=== PATIENT | male | born 1955 | race Caucasian/White ===

== ENCOUNTER → 2016-07-08 | Outpatient (CLI) | payer OTHER ==
[~2016-07-08] VITALS: Ht 190.5 cm; Wt 131.1 kg
[~2016-07-08] MED LIST: ALEVE220 M1 PO; ALEVE220 MG PO; AMARYL2 MG PO; ASPIRIN EC81 M1 PO; CARBAMAZEPINE200 M2 PO; CELEXA 20 MG TA20 M1 PO; CIALIS5 MG PO; COZAAR 50 MG TA50 M1 PO; JANUMET XR 50-1 EAC1 PO; LANSOPRAZOLE30 MG PO; NEURONTIN 300300 M1 PO; NORCO 10-325 T1 EACH PO; OXYCONTIN CR 1010 M1 PO; RECTICARE30 GM TP; SIMVASTATIN40 MG PO; SKELAXIN 800 M800 M1 PO; ZOLPIDEM TART12.5 M1 PO
--- NOTE | ~2016-07-08 | HPC ---
[facility] [address] [place] [address] PAIN MANAGEMENT CONSULTATION Name: CHARISSE KENDALL [id number] Admission: 07/08/16 Attend Phys: Bebeto Arcos DO Discharge: Date of : 51 Report #: [id number] THIS REPORT FOR: //name// CC: Gurpreet Arcos The patient is a 61-year-old gentleman seen in consultation at the request of Dr. Fields for evaluation of left neck and jaw pain. The patient notes pain began acutely 2 weeks ago. Denies antecedent trauma or overuse. Rates the pain an 8-9 on a 0-10 visual analog scale. Pain is in the left neck, jaw, posterior occiput. Does not radiate into the arm. Has not changed with masticating, but is painful with light touch. Was given Gabapentin, currently taking one 300 mg tablet at bedtime as we know it does cause a little sedation. Hydrocodone afforded nominal efficacy. Has a prescription from metaxalone, but it is unclear if he is taking it. He has been using topical Neosporin "plus" (I believe this is with lidocaine), which does afford some transient relief. Pain got so bad that 2 days ago on July 06, he presented to the ER at [facility]. They started him on Bactrim for a presumed infection. He does have cervical adenopathy in the postauricular area. He notes he has constant burning, shooting, stabbing pain, again rates it anywhere from 8-9 on a 0-10 visual analog scale. Unfortunately, he is a fairly poor historian. REVIEW OF SYSTEMS: Complete review of systems attached to chart and gone over with the patient. He is . He smokes 1 pack of cigarettes a day, which he has for 38 years. He does not drink alcohol to excess. Non-insulin dependent diabetes, longstanding, currently treated with Januvia; hypertension for which he takes losartan; history of hepatitis as a child; gastroesophageal reflux, for which he takes Lansoprazole; chronic anxiety for which he takes citalopram; history of shingles "on the top of his head" though he is unable to tell me when; history of dyslipidemia for which he takes simvastatin. He has had 4 back surgeries and he has been disabled secondary to same. Pain impact score is fairly high, averaging about 8.2 for all indices queried. PHYSICAL EXAMINATION: VITAL SIGNS: Reveals a 6 feet 2 inches, 289 pounds gentleman. BMI is 36.1 kilograms per meter squared. Blood pressure is 142/75, pulse 71, respirations are 16. NEUROLOGIC: Cranial nerves 2-12 are grossly intact. HEENT: Pupils are equal and react to light and accommodation. Extraocular muscles are intact. He has some erythematous eczema-type distribution over his forehead and nose. Does have perhaps postauricular adenopathy appreciated little bit along the nuchal ridge along the left side. [address] [address] PAIN MANAGEMENT CONSULTATION Name: CHARISSE KENDALL Room #: LARISSA Castro#: [id number] Admission: 07/08/16 Attend Phys: Bebeto Arcos DO Discharge: Date of : 51 Report #: [id number] NEUROLOGIC: Cervical range of motion is modestly diminished, flexion exacerbates pain. Very tender to palpation over the posterior occiput on the left side, temporal area and very tender around the ear and preauricular area. EXTREMITIES: Upper extremity strength is preserved and symmetric at 4/5 to all muscle groups tested. HEART: Regular and rhythmical without murmur. LUNGS: Show rhonchi. ABDOMEN: He is endomorphic build. NEUROLOGIC: Gait is tandem. SKIN INTEGUMENT: As described above. DIAGNOSTIC STUDIES: There are no diagnostic studies available for evaluation at this time. ASSESSMENT: Neuropathic pain, left hemifacial posterior occipital distribution in a gentleman with significant light touch pain and positive adenopathy in this area. No discernible acute skin lesions. Comorbidities include morbid obesity with a BMI of 36.1 kilograms per meter squared, non-insulin dependent diabetes, hypertension, history of shingles though the patient thinks the distribution was not corresponding to current issue of pain. LABORATORY DATA: I did get a CBC with differential, white count is normal at 7.7, he does have modestly elevated monocytes at 9.2. Hemoglobin and hematocrit are nominally high at 18.2 and 52.6 respectively. ASSESSMENT: Neuropathic pain, possible secondary to infection. Again, white count fairly unremarkable, but with significantly tender enlarged lymph nodes in the cervical spine. RECOMMENDATIONS: 1. CT of the cervical spine to evaluate cervical facets. 2. Increase Gabapentin to 2 tablets at bedtime. 3. Prescription for 5% lidocaine gel to be used topically, discontinue the Neosporin. 4. We will start patient on Tegretol 200 mg b.i.d. to help with neuropathic component of pain. Follow up after CT of cervical spine for further evaluation. 5. Neuropathic pain component for which we may consider stellate ganglion block. Given adenopathy issues and concern for infection, we will likely do the injection without steroid. Thank you for allowing me to participate in the patient's care. He is a [facility] [address] [place] [address] PAIN MANAGEMENT CONSULTATION Name: CHARISSE KENDALL Room #: REG [facility] Matthew#: [id number] Admission: 07/08/16 Attend Phys: Bebeto Arcos DO Discharge: Date of : 51 Report #: [id number] diagnostic dilemma. I will keep you abreast of his progress, may consider referral to neurology and/or infectious disease after our next visit. <ELECTRONICALLY SIGNED> By: Bebeto Arcos DO 07/13/16 0729 1232 1820 Bebeto Arcos DO /nt
[2016-07-08 09:56] VITALS: BP 142/75
[2016-07-08 11:07] LABS: ABSOLUTE NEUTROPHILS 4.5 thou/uL (1.4-8.2); BASOPHILS 0.6 % (0.0-2.0); EOSINOPHILS 2.3 % (0.0-3.0); HEMATOCRIT 52.6 % (42.0-52.0); HEMOGLOBIN 18.2 gm/dL (14.0-18.0); LYMPHOCYTES 29.2 % (24.0-44.0); MCH 33.1 pg (26.0-34.0); MCHC 34.5 % (28.0-37.0); MCV 95.7 fL (80.0-100.0); MONOCYTES 9.2 % (1.0-8.0); PLATELET COUNT 144 thou/uL (150-400); POLYS 58.7 % (36.0-66.0); RBC 5.49 mil/uL (4.50-6.00); RDW 14.2 % (10.5-14.5); WBC 7.7 thou/uL (4.0-11.0)
[2016-07-08 11:10] LABS: MANUAL DIFF NO
== END | disposition home or self-care (01) ==
LOC: PAIN 07:16
PROVIDERS: Anesthesiology Pain Medicine
DX: G62.9 Polyneuropathy, unspecified (principal); M54.2 Cervicalgia

== ENCOUNTER → 2016-07-14 | Outpatient (CLI) | payer OTHER ==
[~2016-07-14] VITALS: Ht 190.5 cm; Wt 131.1 kg
--- NOTE | ~2016-07-14 | HPC ---
[facility] [place] [address] PAIN MANAGEMENT CONSULTATION Name: CHARISSE KENDALL Room #: REG [facility] Baltazar.#: [id number] Admission: 07/14/16 Attend Phys: Bebeto Arcos DO Discharge: Date of : 51 Report #: [id number] THIS REPORT FOR: //name// CC: Gurpreet Arcos The patient is a 61-year-old gentleman, prior seen in consultation 07/08/2016, diagnosed with neuropathic pain, left hemifacial, component of cervical spondylosis. I did get a CBC at that time, concern for what appeared to be either boils or lymph nodes in the posterior occipital ridge. White count was essentially unremarkable at 7.7. Eosinophil count was also unremarkable at 2.3, did have a mild elevation in the percentage of lymphocyte at 9.2. I ordered a CT scan of the cervical spine, this was reviewed today. CT scan shows no acute fracture, dislocation or subluxation. There is some mild degenerative disk disease, left C6-C7 neural foraminal stenosis, some canal narrowing at this level as well; however, this does not correlate with any specific radicular symptoms. I personally reviewed the images and saw no obvious pathology in the cranial area along the inferior occipital area. The patient has increased his gabapentin to 2 tablets at bedtime and is taking tegretol 200 mg b.i.d. He notes a little bit of sleepiness with this medication, but no significant change in the subjective pain, the left neck pain rating at 6 or 7 on a 0-10 visual analog scale. Today, we elected to proceed with stellate ganglion block (left) with fluoroscopy today. Followup Monday for repeat if indicated. If stellate ganglion blocks do not afford adequate relief, we will refer to neurology for further diagnosis. ASSESSMENT: Neuropathic pain, left hemifacial, component of cervical spondylosis requiring complex medication management. RECOMMENDATION PROCEDURE: Stellate ganglion block under fluoroscopy. PROCEDURE: After informed consent was obtained, the patient was placed in the supine position. Skin overlying the C6 cervical vertebra was cleansed with ChloraPrep. Skin wheal with Xylocaine was raised. A 22-gauge stellate ganglion needle was placed to contact anterior portion of the C6 vertebral body. Negative aspiration was accomplished, 1 mL of Omnipaque was injected, which showed spread within the sympathetic gutter. This was followed with 2.5 mL of 0.5% preservative-free bupivacaine plus 2.5 mL of 1.5% preservative-free Xylocaine with 1:10,000 epinephrine. Musella removed. The area was cleansed, Band-Aids applied. The patient monitored for an appropriate period of time, discharged in good and stable condition, noting significant improvement in subjective pain. [address] [address] PAIN MANAGEMENT CONSULTATION Name: CHARISSE KENDALL Room #: REG [facility] Castro#: [id number] Admission: 07/14/16 Attend Phys: Bebeto Arcos DO Discharge: Date of : 51 Report #: [id number] Followup is on Monday for consideration for repeat injection if indicated. <ELECTRONICALLY SIGNED> By: Bebeto Arcos DO 07/18/16 1228 1618 0344 Bebeto Arcos DO /nt
[2016-07-14 14:07] VITALS: BP 123/73
== END | disposition home or self-care (01) ==
LOC: PAIN 07:17
DX: M79.2 Neuralgia and neuritis, unspecified (principal); M47.892 Other spondylosis, cervical region; F17.210 Nicotine dependence, cigarettes, uncomplicated

== ENCOUNTER → 2016-07-18 | Outpatient (CLI) | payer OTHER ==
[~2016-07-18] VITALS: Ht 190.5 cm; Wt 130.4 kg
--- NOTE | ~2016-07-18 | HPC ---
[facility] [place] [address] [place] [address] PAIN MANAGEMENT CONSULTATION Name: CHARISSE KENDALL Room #: REG [facility] Matthew#: [id number] Admission: 07/18/16 Attend Phys: Bebeto Arcos DO Discharge: Date of : 51 Report #: [id number] THIS REPORT FOR: //name// CC: Dr. Gurpreet Arcos DATE OF SERVICE: 07/18/2016 The patient is a 61-year-old gentleman, last seen 07/14/2016, we did a left stellate ganglion block for left hemifacial pain, neuropathic pain requiring complex medication management. Pain began abruplty without antecedant trauma nor was it associated with any cutaneous skin changes. The patient returns to pain clinic today noting a good 40% improvement of baseline pain. Again, I reviewed a CT of the neck which is essentially unremarkable; no osseous pathology but does show "mild Degenerative disc disease with mild left C6-7 neural foraminal stenosis". He does have some palpable nodules along the posterior nuchal line, though I think these are more sebaceous type of cysts rather than adenopathy . White count obtained at first visit was unremarkable (WBC 7.7 with diff unremarkable other than nominal relative increase Monocytes @ 9.2%). He is currently taking gabapentin 300 mg 2 tablets at bedtime along with Tegretol 200 mg 2 tablets at bedtime. Notes pain has significantly improved overall. PHYSICAL EXAMINATION: Shows hyperpathia, allodynia about the left neck, pre and postauricular and temporal area. Some rosacea type facial changes noted. CROM is relatively full. Upper extremity strength is symmetric. Vital signs are otherwise stable. ASSESSMENT: Neuropathic pain, left hemicranial facial pain requiring complex medication management. RECOMMENDATIONS: 1. Repeat stellate ganglion block today under fluoroscopy. 2. I will refer the patient to Neurology at [facility] for further evaluation to ensure I are not overlooking any treatable etiology of this pain. It appears to be primarily neuropathic type pain, given the quality of pain and the improvement following a stellate ganglion block without steroid. I am simply treating the subjective neuropathic pain component presently. I had initially suggested a referral to ENT surgeon, but the patient was fairly [facility] [address] [place] [address] PAIN MANAGEMENT CONSULTATION Name: CHARISSE KENDALL Khoi Room #: REG [facility].#: [id number] Admission: 07/18/16 Attend Phys: Bebeto Arcos DO Discharge: Date of : 51 Report #: [id number] adamant that if he had any surgery on his head it would be from his neurosurgeon. I will ask Neurology to evaluatae insure that I am not overlooking any other possibly treatable pathology for his acute facial pain symptoms. ASSESSMENT: Neuropathic pain, left hemifacial pain. PROCEDURE: Stellate ganglion block under fluoroscopy. PROCEDURE: After written informed consent was obtained, the patient was placed in supine position. Skin overlying the neck was cleansed with ChloraPrep. C-arm was used to identify the C6 vertebral body. Skin wheal with Xylocaine was raised. A 22-gauge stellate ganglion needle was placed to contact the anterior border left side of the C6 vertebral body. Negative aspiration was accomplished, 1 mL of Omnipaque was injected, which showed spread within the sympathetic gutter. This was followed with 4 mL of 0.5% preservative-free bupivacaine plus 4 mL of 1.5% preservative-free Xylocaine with 1:200,000 epinephrine. Needle was removed, area was cleansed, Band-Aids applied. The patient was monitored for an appropriate period of time, discharged in good and stable condition. Follow up will be in 3 weeks. Hopefully, he will get in to see Neurology in the interval. <ELECTRONICALLY SIGNED> By: Bebeto Arcos DO 07/22/16 0811 1114 1304 Bebeto Arcos DO /nt
[2016-07-18 10:22] VITALS: BP 137/66
== END | disposition home or self-care (01) ==
LOC: PAIN 07:02
DX: R51 Headache (principal)

== ENCOUNTER 2020-12-02 06:12 | Day surgery (SDC) | payer OTHER ==
[~2020-12-02] VITALS: Ht 188 cm; Wt 127.0 kg
--- NOTE | ~2020-12-02 | O ---
[facility] [place] [place] [address] OPERATIVE REPORT Name: CHARISSE KENDALL Room #: 150-1 [facility] MAlineR.#: [id number] Admission: 12/02/20 Attend Phys: Pedro Moya Discharge: Date of : 51 Report #: [id number] THIS REPORT FOR: cc: Gurpreet Fields MD, Eric K. MD VanDenBerghe, Gregory R. MD ~ DOC #: [id number] Pedro Chao MD DATE OF SERVICE: 12/02/2020 PREOPERATIVE DIAGNOSES: Right knee pain, medial meniscus tear, posterior cruciate ligament tear, chondromalacia. POSTOPERATIVE DIAGNOSES: Right knee medial and lateral meniscus tears, posterior cruciate ligament tear, anterior knee enthesophyte, intra-articular synovitis, tricompartmental chondromalacia grade III. PROCEDURES PERFORMED: Right knee arthroscopy, partial medial and lateral meniscectomies, posterior cruciate ligament debridement, tricompartmental chondroplasty and synovectomy, removal of anterior tibial enthesophyte. SURGEON: Pedro Chao MD HEAD PASTRY CHEF: Rosangela Alexander PA-C. ANESTHESIA: General per LMA. FLUIDS: 600 mL crystalloid. TOURNIQUET TIME: Approximately 22 minutes at 350 mmHg. DESCRIPTION OF PROCEDURE: After proper identification of the patient and the operative site in preoperative holding area, the operative site is signed by myself. Prophylactic antibiotics given. The patient elected to receive a general anesthetic. The patient was brought back to the operative suite after induction of satisfactory general anesthesia, he was carefully positioned. Tourniquet was applied to the upper thigh. The limb was placed in arthroscopic leg weston and the limb was sterilely prepped and draped in the usual manner. A mild effusion was noted and the limb was sterilely prepped and draped in the usual manner, elevated, exsanguinated with an Esmarch, tourniquet was inflated to 350 mmHg. Superomedial portal was created for inflow purposes. The joint was inflated by gravity inflow with normal saline. An anterolateral and then an anteromedial portal were created using a spinal needle for localization. Examination of the suprapatellar pouch, medial and lateral gutters revealed some intra-articular synovitis, no chondral loose bodies were noted. Patellofemoral articulation revealed some diffuse fibrillation, fraying and loose chondral [address] [address] OPERATIVE REPORT Name: CHARISSE KENDALL Room #: 150-1 [facility] Matthew#: [id number] Admission: 12/02/20 Attend Phys: Pedro Moya Discharge: Date of : 51 Report #: [id number] flaps on both the medial and lateral patellar facets. This area was carefully debrided with motorized shaver. Mild degenerative changes with some diffuse degenerative changes were also noted on the trochlea. Intra-articular synovitis was carefully debrided. The medial compartment of the knee revealed a complex tear of the posterior horn and mid body as well as some calcifications of the meniscus as well as some chondrocalcinosis. This area was debrided with combination of hand and motorized instrumentation back to a stable rim. Multiple areas of loose chondral flaps and fibrillated tissue was noted on the medial femoral condyle as well as diffuse fibrillation on the medial tibial plateau. Remnants of the PCL stump also could be mobilized within the medial joint space. Chondroplasty was performed. The PCL demonstrated unstable tear and the displaced ligamentous fragments were then carefully debrided with motorized shaver. There was also an osseous enthesophyte type structure that could impinge in full extension shown on image 8 that was debrided with combination of hand and motorized instrumentation. ____ central cord first appeared to be more cystic in its outer appearance, but it had bony inner aspect. Lateral compartment of the knee revealed a complex tear of the anterior mid body and posterior aspects of the meniscus. This area was carefully debrided with motorized shaver. The diffuse fibrillated tissue on the lateral femoral condyle and moderately so on the plateau were carefully debrided with motorized shaver. The abundant hypertrophic synovium was carefully debrided. The knee was thoroughly irrigated with normal saline. Portals were closed with simple nylon stitches. 20 mL of 0.2% Naropin was injected to aid in postoperative pain control. Sterile compressive dressing was applied. The patient was awakened and transferred to the recovery room in stable condition. Pedro Chao MD GRV/KDA By: 0749 0825 Pedro Chao MD /nt
[~2020-12-02 06:12] MED LIST changes: +ATORVASTATIN CA80 MG PO; +CARVEDILOL3.125 MG PO; -CELEXA 20 MG TA20 M1 PO; +CELEXA 20 MG TA20 MG PO; +FINASTERIDE5 MG PO; +GABAPENTIN600 M1 PO; +GLIMEPIRIDE4 MG PO; +IBUPROFEN 400400 M1 PO; +JARDIANCE10 MG PO; +LOSARTAN POTASS50 MG PO; +OXYCODONE-APAP1 EAC4 PO; +PROBIOTIC1 EAC7 PO; +PROTONIX40 M2 PO; +TAMSULOSIN HCL0.4 MG PO
[2020-12-02 06:56] VITALS: BP 140/60
[2020-12-02 08:56] VITALS: BP 140/60
== END 2020-12-02 08:56 | disposition home or self-care (01) ==
LOC: OR 06:12 → TBA 06:13 → OR 08:56
PROVIDERS: ATTEND Orthopaedic Surgery Sports Medicine
DX: M25.561 Pain in right knee (principal); S83.231A Complex tear of medial meniscus, current injury, right knee, initial encounter; S83.281A Other tear of lateral meniscus, current injury, right knee, initial encounter; S83.521A Sprain of posterior cruciate ligament of right knee, initial encounter; M76.891 Other specified enthesopathies of right lower limb, excluding foot; M94.261 Chondromalacia, right knee; M65.861 Other synovitis and tenosynovitis, right lower leg; I10 Essential (primary) hypertension; E11.9 Type 2 diabetes mellitus without complications; I25.10 Atherosclerotic heart disease of native coronary artery without angina pectoris; I25.2 Old myocardial infarction; I48.91 Unspecified atrial fibrillation; J44.9 Chronic obstructive pulmonary disease, unspecified; E78.5 Hyperlipidemia, unspecified; M19.90 Unspecified osteoarthritis, unspecified site; E66.9 Obesity, unspecified; Z90.49 Acquired absence of other specified parts of digestive tract; Z98.890 Other specified postprocedural states; Z79.899 Other long term (current) drug therapy; Z86.73 Personal history of transient ischemic attack (TIA), and cerebral infarction without residual deficits; Z95.0 Presence of cardiac pacemaker; X58.XXXA Exposure to other specified factors, initial encounter; Y93.89 Activity, other specified; Y92.89 Other specified places as the place of occurrence of the external cause; Y99.8 Other external cause status
CPT/HCPCS: 50010; 50101; 50405; 56526; 57103; 57255; 58577; 58589; 58680; 62110; 62900; 70005